=== PATIENT | female | born 1990 | race Two or more races ===

== ENCOUNTER 2022-03-20 23:58 | Emergency (ER) | payer SELFPAY ==
[~2022-03-20] VITALS: Ht 162.6 cm; Wt 76.8 kg
[2022-03-20 23:58] VITALS: BP 137/73
[2022-03-21] MEDS ORDERED: PRAZ1CAP PO (00:23)
[2022-03-21] MEDS ORDERED: MIRT-10 PO (00:23)
[2022-03-21] MEDS ORDERED: VENL150C43 PO (00:23)
[2022-03-21] MEDS ORDERED: [UNRECOGNIZED DRUG - OTHER] TOP (00:23)
== END 2022-03-21 03:21 | disposition left against medical advice (07) ==
LOC: M ED 23:58
DX: Z53.21 Procedure and treatment not carried out due to patient leaving prior to being seen by health care provider (principal)